=== PATIENT | female | born 1990 | race Caucasian/White ===

== ENCOUNTER 2020-05-09 10:09 | Emergency (ER) | payer OTHER ==
[~2020-05-09] VITALS: Ht 144.8 cm; Wt 61.2 kg
[~2020-05-09 10:09] MED LIST: IBUPROFEN 800800 M1 PO; LANSINOH 60 GM60 GM; PERCOCET 5-3251 EACH PO; PRENATAL MULTI1 EAC2
[2020-05-09] MEDS ORDERED: NORCO 5-325 TA1 EAC1 PO (12:06)
[2020-05-09 12:25] VITALS: BP 140/73
== END 2020-05-09 12:27 | disposition home or self-care (01) ==
LOC: M.ERS 10:09
DX: S62.396A Other fracture of fifth metacarpal bone, right hand, initial encounter for closed fracture (principal); Z88.0 Allergy status to penicillin; Z98.890 Other specified postprocedural states; W17.89XA Other fall from one level to another, initial encounter; Y93.41 Activity, dancing; Y92.89 Other specified places as the place of occurrence of the external cause; Y99.9 Unspecified external cause status